=== PATIENT | male | born 1955 | race Caucasian/White ===

== ENCOUNTER 2019-02-03 06:34 | Day surgery (SDC) | payer BC ==
[~2019-02-03] VITALS: Ht 180.3 cm; Wt 129.5 kg
[2019-02-03 07:12] VITALS: BP 129/76; PULSE 76; TEMP 98.6
[2019-02-03 08:00] VITALS: BP 117/74; PULSE 74; TEMP 98.2
--- NOTE | 2019-02-03 08:00 | NUR ---
Patient brought back to [facility], ambulated to chair without difficulty. Alert and oriented. at bedside. Vital signs obtained WNL. No complaints of pain or nausea. Requesting coffee and a muffin at this time, tolerating well. Call ruiz within reach, will continue to monitor.
[2019-02-03 08:15] VITALS: BP 116/66; PULSE 79
--- NOTE | 2019-02-03 08:15 | NUR ---
Vital signs stable. Patient tolerating food and drink without difficulty. States he is feeling good. Will continue to monitor.
[2019-02-03 08:30] VITALS: BP 125/64; PULSE 80
--- NOTE | 2019-02-03 08:30 | NUR ---
Patient states he is ready to go home. Vital signs stable.
--- NOTE | 2019-02-03 08:43 | NUR ---
Discharge instructions reviewed with patient and . All questions answered. IV removed.
--- NOTE | 2019-02-03 08:50 | NUR ---
Patient wheeled down to lobby. to drive patient home.
== END 2019-02-03 08:50 | disposition home or self-care (01) ==
LOC: SDCO 06:34
DX: Z12.11 Encounter for screening for malignant neoplasm of colon (principal); K64.0 First degree hemorrhoids; K57.30 Diverticulosis of large intestine without perforation or abscess without bleeding; E66.09 Other obesity due to excess calories; Z68.39 Body mass index [BMI] 39.0-39.9, adult; G47.33 Obstructive sleep apnea (adult) (pediatric); Z82.49 Family history of ischemic heart disease and other diseases of the circulatory system; Z83.3 Family history of diabetes mellitus; Z80.8 Family history of malignant neoplasm of other organs or systems
CPT/HCPCS: OP; J2250; J3010; J7030